=== PATIENT | male | born 1950 | race Caucasian/White ===

== ENCOUNTER 2017-10-20 13:28 | Emergency (ER) | payer OTHER ==
[~2017-10-20] VITALS: Ht 157.5 cm; Wt 108.9 kg
[~2017-10-20 13:28] MED LIST: AMLODIPINE BESY10 MG PO; METFORMIN HCL500 MG PO; NORVASC5 MG PO; ZESTORETIC 20-1 EAC3 PO
[2017-10-20 13:35] VITALS: BP 118/83
== END 2017-10-20 14:16 | disposition home or self-care (01) ==
LOC: ER 13:28
DX: S05.32XD Ocular laceration without prolapse or loss of intraocular tissue, left eye, subsequent encounter (principal); I10 Essential (primary) hypertension; X58.XXXD Exposure to other specified factors, subsequent encounter